=== PATIENT | female | born 1960 | race Caucasian/White ===

== ENCOUNTER → 2021-03-15 16:36 | Outpatient (BNVA) | payer OTHER, SELFPAY | PROVIDERS: Visit Provider Nurse Practitioner Family | DX: Z20.822 Contact with and (suspected) exposure to COVID-19 (principal); R05 Cough; R06.02 Shortness of breath | CPT/HCPCS: 87635 ==

== ENCOUNTER → 2021-03-22 08:58 | Outpatient (BNVA) | payer MEDICARE, SELFPAY | PROVIDERS: Visit Provider Family Medicine | DX: R06.02 Shortness of breath (principal); E55.9 Vitamin D deficiency, unspecified; Z78.0 Asymptomatic menopausal state; E78.5 Hyperlipidemia, unspecified; J44.9 Chronic obstructive pulmonary disease, unspecified; Z72.0 Tobacco use; E11.9 Type 2 diabetes mellitus without complications; R35.0 Frequency of micturition; J44.1 Chronic obstructive pulmonary disease with (acute) exacerbation | CPT/HCPCS: 71046; 80053; 80061; 81000; 82306; 82607; 83036; 84443; 85025; 87086 ==

== ENCOUNTER 2021-04-19 12:33 | Outpatient (CLI) | payer MEDICARE, SELFPAY ==
--- NOTE | 2021-04-19 12:46 | CT_ITS ---
WS: [id number] LDCT LUNG CANCER SCREENING HISTORY: Z72.0 - Tobacco use TECHNIQUE: Axial imaging performed from the apices to 1 cm below the costophrenic angles. Coronal and sagittal reformats are submitted with axial MIP series. All CT scans at [facility] use at least one of these dose optimization techniques: automated exposure control; mA and/or kV adjustment per patient size (includes targeted exams where dose is matched to clinical indication); or iterativ e reconstruction. DLP: 54.19 mGy.cm DIvol: 1.58 mGy COMPARISON: None available. Diagnostic quality: Satisfactory Lung Nodules: None. Lungs: Mild hyperinflation from emphysema. No pneumonia. Heart: Normal size with mild coronary artery calcification. No pericardial effusion. Other findings: Small hiatal hernia. Mild atherosclerosis aorta. Marked atrophy of the LEFT kidney. CT/CT lung screening [id number] IMPRESSION: LUNG-RADS: 1-Negative FOLLOW UP: 12 Month: Continue annual screening with LDCT OTHER FINDINGS (S MODIFIER): None. Severe atrophy LEFT kidney.
--- NOTE | 2021-04-19 14:01 | XR_ITS ---
WS: [id number] SCREENING DEXA SCAN [facility] CLINICAL INFORMATION: Z78.0 - Asymptomatic menopausal state COMPARISON: None. FINDINGS: The L1-L4 bone mineral density measures 0.885 g/cm2. This corresponds to a T score score of -2.5 and Z score of -0.7. Left femoral neck bone mineral density measures 0.653 g/cm2. This corresponds to a T score of -2.8 an d Z score of -1.5. Right femoral neck bone mineral density measures 0.640 g/cm2. This corresponds to a T score -2.9of an d Z score of -1.6. Mean femoral neck bone mineral density measures 0.647 g/cm2. This corresponds to a T score of -2.9 an d Z score of -1.6. XR/XR DEXA axial skeleton* [id number] IMPRESSION: Osteoporosis at the lower end of the range Patient's FRAX calculated 10 year probability for major osteoporotic fracture i s 21.6 % and osteoporotic hip fracture is 5.9%.
== END 2021-04-19 12:34 | disposition home or self-care (01) ==
PROVIDERS: PCP Nurse Practitioner Family; Visit Provider Nurse Practitioner Family
DX: Z12.2 Encounter for screening for malignant neoplasm of respiratory organs (principal); Z72.0 Tobacco use; Z78.0 Asymptomatic menopausal state; M81.0 Age-related osteoporosis without current pathological fracture
CPT/HCPCS: 71271; 77080; 80053; 80061; 81000; 82306; 82607; 83036; 84443; 85025; 87086

== ENCOUNTER → 2021-05-16 09:59 | Outpatient (BNVA) | payer MEDICARE, SELFPAY | PROVIDERS: PCP Nurse Practitioner Family; Visit Provider Nurse Practitioner Family | DX: R39.15 Urgency of urination (principal); N89.8 Other specified noninflammatory disorders of vagina; Z68.21 Body mass index [BMI] 21.0-21.9, adult | CPT/HCPCS: 81000 ==

== ENCOUNTER → 2021-05-29 09:26 | Outpatient (BNVA) | payer MEDICARE, SELFPAY | PROVIDERS: PCP Nurse Practitioner Family; Visit Provider Nurse Practitioner Adult Health | DX: Z01.818 Encounter for other preprocedural examination (principal); Z20.822 Contact with and (suspected) exposure to COVID-19 | CPT/HCPCS: 80048; 80061; 85025; 85610; 85730; 87635 ==

== ENCOUNTER → 2021-06-18 13:29 | Outpatient (BNVA) | payer MEDICARE, SELFPAY | PROVIDERS: PCP Nurse Practitioner Family; Visit Provider Nurse Practitioner Family | DX: Z79.01 Long term (current) use of anticoagulants (principal); Z86.73 Personal history of transient ischemic attack (TIA), and cerebral infarction without residual deficits | CPT/HCPCS: 85610 ==

== ENCOUNTER → 2021-07-04 10:46 | Outpatient (BNVA) | payer MEDICARE, SELFPAY | PROVIDERS: PCP Nurse Practitioner Family; Visit Provider Nurse Practitioner Family | DX: Z79.899 Other long term (current) drug therapy (principal) | CPT/HCPCS: 80048 ==

== ENCOUNTER → 2021-09-21 12:05 | Outpatient (BNVA) | payer MEDICARE, SELFPAY | PROVIDERS: PCP Nurse Practitioner Family; Visit Provider Nurse Practitioner Family | DX: Z79.01 Long term (current) use of anticoagulants (principal); N89.8 Other specified noninflammatory disorders of vagina; Z68.23 Body mass index [BMI] 23.0-23.9, adult; R60.9 Edema, unspecified | CPT/HCPCS: 85610 ==

== ENCOUNTER → 2021-10-08 08:40 | Outpatient (BNVA) | payer MEDICARE, SELFPAY | PROVIDERS: PCP Nurse Practitioner Family; Visit Provider Nurse Practitioner Family | DX: R30.0 Dysuria (principal); N89.8 Other specified noninflammatory disorders of vagina | CPT/HCPCS: 81000; 87070; 87205 ==

== ENCOUNTER 2021-12-03 09:44 | Day surgery (SDC) | payer MEDICARE, SELFPAY ==
[2021-11-29 09:18] VITALS: BMI 17.2
--- NOTE | 2021-12-03 08:00 | P.HP_ITS ---
Same Day Surgery H&P Indication for Procedure/HPI DATE OF PROCEDURE: December 03, 2021 CHIEF COMPLAINT/INDICATIONFOR SURGICAL PROCEDURE: History of colon polyp PREOP DIAGNOSIS: History of colon polyp PLANNED PROCEDURE: Operation Date: 12/03/21 11:15 Proposed Procedures p Colonoscopy 55761,K59.09,Z09,Z86.010(Not Applicable) - Chris Sanders MD Medications/Allergies* Home Medications Medication Instructions Recorded Confirmed Type estradiol 1 g VAGINAL .COMPLEX 03/15/21 11/29/21 History lisinopril 40 mg tablet 40 mg PO DAILY 03/15/21 11/29/21 History warfarin 2.5 mg tablet 2.5 mg PO .COMPLEX 09/21/21 11/29/21 History warfarin 5 mg tablet 5 mg PO .COMPLEX 09/21/21 11/29/21 History bumetanide 1 mg tablet 1 mg PO DAILY 11/26/21 11/29/21 History Allergies/Adverse Reactions Allergy/AdvReac Type Severity Reaction Status Date / Time No Known Allergies Allergy Verified 11/29/21 09:10 Pertinent History/Comorbid Conditions* Medical History (Updated 11/26/21 @ 14:25 by Chris Sanders MD) Depression History of stroke x3 History of tremor Hyperlipidemia Hypertension Family History (Updated 11/26/21 @ 14:03 by Ann Mccloud) Cancer Mother Uterine Social History Smoking and tobacco status: current every day smoker Alcohol intake: former Pertinent Exam Findings alert, oriented x 3, clear to auscultation bilaterally, regular rate & rhythm, operative site marked and procedure specific exam findings Recommendations Surgery/Procedure today Coding Level of Care Code Acute Utilities Equipment Repairer for Eleni Ye
[2021-12-03 10:04] VITALS: BP 156/81; PULSE 72; RESP 20; TEMP 36.4; O2SAT 97
[2021-12-03] MEDS: sodium chloride 0.9% 1,000 ML 30 ML IV (10:15)
--- NOTE | 2021-12-03 11:05 | ANES.PREANE2 ---
Pre-Anesthetic Assessment Height/Weight: Height 1.73 m Weight 51.256 kg Temp Pulse Resp BP Pulse Ox 97.6 F 72 20 H 156/81 97 12/03/21 10:04 12/03/21 10:04 12/03/21 10:04 12/03/21 10:04 12/03/21 10:04 Preop Diagnosis: H/O large polyp Operation Date: 12/03/21 11:15 Proposed Procedures p Colonoscopy 87736,K59.09,Z09,Z86.010(Not Applicable) - Chris Sanders MD Familial anesthetic complications: none Was Beta Stewart taken within 24 hours: Yes Was Clonidine taken within 24 hours: N/A Last intake: Intake Last Liquid Date 12/02/21 Last Liquid Time 19:30 Last Solid Date 12/01/21 Last Solid Time 18:00 Social Tobacco and No alcohol Exam alert, oriented x 3 and regular rate & rhythm Airway Submandibular: within normal limits Cervical ROM: within normal limits Mallampati: Class II Dentition: false Pulmonary Chronic Obstructive Pulmonary Disease Home O2 2-3L CV/HEM Hypertension GI Gastroesophageal Reflux Disease Neuropsych Cerebrovascular Accident and Transient Ischemic Attack Anesthetic Plan ASA status: 3 Anesthesia: MAC Medications/Allergies Home Medications Medication Instructions Recorded Confirmed Last Taken Type albuterol sulfate 90 mcg/actuation 2 puff INHALATION Q4H PRN #8.5 g 03/15/21 12/03/21 12/02/21 Rx aerosol inhaler estradiol 1 g VAGINAL .COMPLEX 03/15/21 12/03/21 1 Week Ago History ~11/26/21 lisinopril 40 mg tablet 40 mg PO DAILY 03/15/21 12/03/21 12/02/21 History diltiazem HCl 240 mg capsule,24 240 mg PO QAM #90 cap 04/25/21 12/03/21 12/03/21 07:00 Rx hr,extended release (Tiazac) pantoprazole 40 mg tablet,delayed 40 mg PO DAILY #90 tab 05/10/21 12/03/21 12/02/21 Rx release rosuvastatin 10 mg tablet 10 mg PO DAILY #90 tab 06/21/21 12/03/21 12/02/21 Rx sertraline 100 mg tablet 150 mg PO DAILY #90 tab 07/02/21 12/03/21 12/02/21 Rx trazodone 50 mg tablet 50 mg PO .bedtime #90 tab 07/02/21 12/03/21 12/02/21 Rx propranolol 10 mg tablet 10 mg PO BID #180 tab 09/19/21 12/03/21 12/03/21 07:00 Rx amlodipine 10 mg tablet 5 mg PO DAILY #90 tab 09/21/21 12/03/21 12/03/21 07:00 Rx warfarin 2.5 mg tablet 2.5 mg PO .COMPLEX 09/21/21 11/29/21 11/26/21 History warfarin 5 mg tablet 5 mg PO .COMPLEX 09/21/21 11/29/21 11/26/21 History albuterol sulfate 2.5 mg (3 mL) INHALATION Q4H PRN 10/31/21 12/03/21 2 Months Ago Rx #180 ml ~10/03/21 magnesium citrate 296 ml PO ONCE #296 ml 11/20/21 12/03/21 12/02/21 Rx fluticasone fur. 100 mcg-umeclid See Rx Instructions .ROUTE 11/23/21 12/03/21 12/02/21 Rx 62.5 mcg-vilant 25 mcg .COMPLEX #60 ea inhalat.powder (Trelegy Ellipta) bumetanide 1 mg tablet 1 mg PO DAILY 11/26/21 12/03/21 12/02/21 History peg 3350-electrolytes 236 240 ml PO Q10M #4000 ml 11/26/21 11/29/21 Unknown Rx gram-22.74 gram-6.74 gram-5.86 gram solution (Golytely) Allergies Allergy/AdvReac Type Severity Reaction Status Date / Time No Known Allergies Allergy Verified 11/29/21 09:10 Current Medications Generic Name Dose Route Start Last Admin Trade Name Freq PRN Reason Stop Dose Admin Sodium Chloride 1,000 mls @ 30 mls/hr 12/03/21 10:00 12/03/21 10:15 Sodium Chloride 0.9% IV 12/04/21 09:59 30 mls/hr .Q24H ZORAIDA Administration PFSH Anesthesia Medical History (Updated 11/26/21 @ 14:25 by Chris Sanders MD) Depression History of stroke x3 History of tremor Hyperlipidemia Hypertension Family History (Updated 11/26/21 @ 14:03 by Ann Mccloud) Mother Cancer Uterine Social History (Updated 11/26/21 @ 14:04 by Ann Mccloud) Smoking and tobacco status: current every day smoker Alcohol intake: former Data Anesthesia Cardiac Studies: No Data to Display
[2021-12-03 11:48] VITALS: BP 99/55; PULSE 57; RESP 16; TEMP 36.1; O2SAT 95
[2021-12-03 11:58] VITALS: BP 100/56; PULSE 59; RESP 18; O2SAT 99
--- NOTE | 2021-12-03 13:54 | ANE.PACU2 ---
Inpatient post-anesthesia follow up: Airway intact: Yes Vital signs: Temperature 97.0 F Pulse Rate 59 Respiratory Rate 18 Blood Pressure 100/56 Pulse Oximetry 99 Oxygen Delivery Me thod Nasal Cannula Oxygen Flow Rate 3 Fraction of Inspir ed Oxygen Hydration adequate: Yes Nausea and vomiting: No Pain level: 1 Mental status: Baseline
== END 2021-12-03 12:10 | disposition home or self-care (01) ==
PROVIDERS: PCP Nurse Practitioner Family; Visit Provider Internal Medicine
PROC: 0DJD8ZZ Inspection of Lower Intestinal Tract, Via Natural or Artificial Opening Endoscopic (ICD-10-PCS; CPT 45378; principal; 2021-12-03 11:15)
DX: K59.09 Other constipation (principal); Z86.010 Personal history of colon polyps; K57.30 Diverticulosis of large intestine without perforation or abscess without bleeding; J44.9 Chronic obstructive pulmonary disease, unspecified; Z99.81 Dependence on supplemental oxygen; I10 Essential (primary) hypertension; K21.9 Gastro-esophageal reflux disease without esophagitis; Z86.73 Personal history of transient ischemic attack (TIA), and cerebral infarction without residual deficits; F32.9 Major depressive disorder, single episode, unspecified; E78.5 Hyperlipidemia, unspecified; F17.210 Nicotine dependence, cigarettes, uncomplicated
CPT/HCPCS: 45378; J2704; J7030

== ENCOUNTER → 2022-01-01 09:01 | Outpatient (BNVA) | payer MEDICARE, SELFPAY | PROVIDERS: PCP Nurse Practitioner Family; Visit Provider Nurse Practitioner Family | DX: E78.5 Hyperlipidemia, unspecified (principal); E55.9 Vitamin D deficiency, unspecified; Z79.01 Long term (current) use of anticoagulants | CPT/HCPCS: 80053; 80061; 82306; 85025; 85610 ==

== ENCOUNTER → 2022-01-08 08:44 | Outpatient (BNVA) | payer MEDICARE, SELFPAY | PROVIDERS: PCP Nurse Practitioner Family; Visit Provider Nurse Practitioner Family | DX: Z79.01 Long term (current) use of anticoagulants (principal) | CPT/HCPCS: 85610 ==

== ENCOUNTER → 2022-02-08 08:14 | Outpatient (BNVA) | payer MEDICARE, SELFPAY | PROVIDERS: PCP Nurse Practitioner Family; Visit Provider Nurse Practitioner Family | DX: Z79.01 Long term (current) use of anticoagulants (principal) | CPT/HCPCS: 85610 ==

== ENCOUNTER → 2022-03-11 14:34 | Outpatient (BNVA) | payer MEDICARE, SELFPAY | PROVIDERS: PCP Nurse Practitioner Family; Visit Provider Nurse Practitioner Family | DX: Z79.01 Long term (current) use of anticoagulants (principal) | CPT/HCPCS: 85610 ==

== ENCOUNTER 2022-04-30 18:25 | Emergency (ER) | payer MEDICARE, SELFPAY ==
[2022-04-30 18:34] VITALS: BP 168/76; PULSE 78; RESP 18; TEMP 36.6; O2SAT 93
--- NOTE | 2022-04-30 21:04 | XRR_ITS ---
PROCEDURE INFORMATION: Exam: XR Cervical Spine Exam date and time: 04/30/2022 9:32 PM Age: 61 years old Clinical indication: Neck pain; Additional info: Fall 2 weeks ago with persistent pain TECHNIQUE: Imaging protocol: Radiologic exam of the cervical spine. Views: 2 or 3 views. COMPARISON: CT head wo con* [id number] 04/30/2022 9:24 PM FINDINGS: Bones/joints: No acute fracture. Normal alignment. Soft tissues: Unremarkable. XR/XR cervical spine 3V* [id number] IMPRESSION: No acute findings.
--- NOTE | 2022-04-30 21:04 | XRR_ITS ---
PROCEDURE INFORMATION: Exam: XR Sacrum and Coccyx, 2 or More Views Exam date and time: 04/30/2022 9:32 PM Age: 61 years old Clinical indication: Pain in coccyx area; Additional info: Fall 2 weeks ago with persistent pain TECHNIQUE: Imaging protocol: XR of the sacrum and coccyx, 2 or more views. COMPARISON: No relevant prior studies available. FINDINGS: Bones/joints: No acute fracture. Soft tissues: Unremarkable. Vasculature: Vascular stent projects over the right hemipelvis. XR/XR sacrum coccyx min 2V [id number] IMPRESSION: No acute findings.
--- NOTE | 2022-04-30 21:06 | CTR_ITS ---
PROCEDURE INFORMATION: Exam: CT Head Without Contrast Exam date and time: 04/30/2022 9:24 PM Age: 61 years old Clinical indication: Pain; Headache; Patient HX: TAYLOR with photophobia. Had a fall two weeks ago. History of CVA. ; Additional info: Fall with persisting TAYLOR and photophobia TECHNIQUE: Imaging protocol: Computed tomography of the head without contrast. Radiation optimization: All CT scans at this facility use at least one of these dose optimization techniques: automated exposure control; mA and/or kV adjustment per patient size (includes targeted exams where dose is matched to clinical indication); or iterative reconstruction. COMPARISON: No relevant prior studies available. RADIATION DOSE METRICS: Total DLP (mGy-cm): 982.18 FINDINGS: Brain: No hemorrhage. No edema. Moderate diffuse cerebral atrophy and mild sequela of chronic small vessel ischemic disease. No mass effect. Cerebral ventricles: No ventriculomegaly. Paranasal sinuses: Visualized sinuses are unremarkable. No fluid levels. Mastoid air cells: Visualized mastoid air cells are well aerated. Bones/joints: Unremarkable. No acute fracture. Soft tissues: Unremarkable. CT/CT head wo con* [id number] IMPRESSION: No acute intracranial abnormality.
--- NOTE | 2022-04-30 21:33 | W.ED.HA ---
Documented by User: Vidhi Dinh, HAY STACKER-C 04/30/22 22:38 HPI - Headache General: Chief Complaint: Headache Stated Complaint: Neck and Back Pain Time Seen by Provider: 04/30/22 20:44 History of Present Illness: Patient is in today for complaints of severe persistent headache, neck pain, sacrum pain. Patient reports that at the beginning of March she had a series of 3 falls in a row. She reports that she was falling at home she hit her head 2-3 different times. Reports that 1 time when she hit her head she was immediately dizzy and just felt stunned . She reports that a couple of weeks ago she started having severe head pain that is persisting. She reports that she wakes up and goes to bed with a headache that just will not go away. She reports most of the headache is frontal and on the top of her head. She does report changes in her hearing. She reports neck pain. She reports coccyx/sacrum pain. She reports that the coccyx and sacrum pain is the worst. She reports that she is unable to get comfortable to sleep. Sitting is worse. She reports that she did see her primary care provider a couple of days ago and was referred to have a CT scan at [facility] in [place]. She reports that they did do a CT scan of her head and they told her it was negative. He reports that her symptoms are only worsening. She does offer that she has had 3 different TIAs with complete resolution of symptoms, she is on chronic anticoagulant therapy with Coumadin, and she has a family history of 2 family members having brain tumor and aneurysm. She was given a muscle relaxer however she is only taken a half a tablet very infrequently because she does not like the way she feels after taking them. She denies any fever, chills, nausea, vomiting. She denies any saddle anesthesia, loss of bowel or bladder control. Associated symptoms: Deny chest pain or fever(s) Review of Systems Const: Denies: fever(s) or chills Eyes: Reports: photophobia; Denies: change in vision ENMT: Reports: change in hearing (Reports her ears feel full and difficult to hear) Card: Denies: chest pain or palpitations Resp: Reports: dyspnea and other (Patient reports chronic shortness of breath with COPD) Musc: Reports: neck pain, back pain and muscle cramps PFSH ED PFSH: Medical History Depression History of stroke x3 History of tremor Hyperlipidemia Hypertension Family History Mother Cancer Uterine Social History Smoking and tobacco status: current every day smoker Alcohol intake: former Physical Exam Const: COMMON NORMALS: no acute distress, patient oriented x3 and alert OTHER: Patient is on portable oxygen. She is in obvious pain and trying to move to get comfortable however she is not in acute distress. Neck/C-Spine: OTHER: There is no tenderness to palpation to the cervical spine, no step-offs or obvious bony deformities appreciated. There is a palpable muscle knot right side cervical paraspinal musculature. Patient has free range of motion of the neck. No meningeal signs Resp: OTHER: Patient is on O2 nasal cannula. She has diminished lung sounds bilateral bases. She does have increased work of breathing whenever she talks a lot, however she does not appear to be in acute respiratory distress Cardio: COMMON NORMALS: regular rate, regular rhythm, S1 normal heart sound present and S2 normal heart sound present RATE: regular rate RHYTHM: regular rhythm HEART SOUNDS: S1 normal heart sound present and S2 normal heart sound present Back/Pelvis: SACRUM: no ecchymosis, no erythema, no swelling and tenderness on the right and positive midline OTHER: Patient has point tenderness just at the gluteal cleft midline. There is no obvious bony step-off or deformity. Just to the right of the gluteal cleft to the paraspinal musculature there is a muscle knot with point tenderness there as well. No obvious soft tissue deformity is appreciated Neuro: COMMON NORMALS: patient oriented x3, CN's II-XII intact bilaterally, moves all extremities, no focal motor deficits and no sensory deficits noted SENSORIUM/ORIENTATION: Yes alert Course Vital Signs: Vital signs: Vital Signs Temperature 97.8 F 04/30/22 18:34 Pulse Rate 78 04/30/22 18:34 Respiratory Rate 15 04/30/22 22:36 Blood Pressure 168/76 04/30/22 18:34 Pulse Oximetry 93 04/30/22 18:34 MDM - Headache Medical Decision Making Patient is in for ongoing pain to her head, neck, sacrum. Patient had numerous falls in a short period of time early March. She is on chronic anticoagulant therapy Coumadin for previous DVTs. She is O2 dependent from COPD. Patient is in obvious discomfort. Given her report of photophobia and her persisting headache x2 weeks on Coumadin therapy I did go ahead and do a CT scan of her head without contrast. No acute intracranial abnormality appreciated per radiologist. Cervical spine x-ray as well as sacrum and coccyx x-rays show no acute findings per radiologist. 1 dose of morphine IM with Zofran administered just to help bring patient's pain level down. Discussed with her conservative treatments and the benefit of the muscle relaxant that she has been already prescribed. Discussed warm moist compresses and gentle stretches. Continue follow-up with primary care provider. Return to the ER for any new or worsening symptoms. Lab Data Radiology Impressions Cervical Spine X-Ray 04/30/22 21:04 IMPRESSION: No acute findings. Sacrum and Coccyx X-Ray 04/30/22 21:04 IMPRESSION: No acute findings. Head CT 04/30/22 21:06 IMPRESSION: No acute intracranial abnormality. Discharge Plan Discharge Patient Disposition: Home Clinical Impression: Postconcussion syndrome, Contusion of sacrum, Muscle spasm, On warfarin therapy, COPD (chronic obstructive pulmonary disease) Condition: Stable Prescriptions: No Action warfarin 2.5 mg tablet 2.5 mg PO .COMPLEX Rx Instructions: 2.5 mg PO friday,fri and friday; warfarin 5 mg tablet 5 mg PO .COMPLEX Rx Instructions: 5 mg PO , ,fri and sun; estradiol 0.01 % (0.1 mg/gram) cream 1 g vaginal .COMPLEX PRN Rx Instructions: 1 g vaginally three times a week; for 14 days PRN; rosuvastatin 10 mg tablet 20 mg PO DAILY Trelegy Ellipta 100-62.5-25 mcg blister with device See Rx Instructions .ROUTE .COMPLEX Qty: 60 3RF Dose Instruction: INHALE 1 PUFF BY MOUTH ONCE DAILY Rx Instructions: INHALE 1 PUFF BY MOUTH ONCE DAILY metoprolol tartrate 50 mg tablet 50 mg PO BID Qty: 180 0RF albuterol sulfate 2.5 mg /3 mL (0.083 %) solution for nebulization 2.5 mg inhalation Q4H PRN (Reason: shortness of breath or wheezing) Qty: 180 3RF albuterol sulfate 90 mcg/actuation HFA aerosol inhaler 2 puff inhalation Q4H PRN (Reason: shortness of breath or wheezing) Qty: 8.5 2RF amlodipine 10 mg tablet 5 mg PO DAILY Qty: 90 3RF azithromycin 250 mg tablet 250 mg PO .mon, wed, fri Qty: 90 0RF Rx Instructions: start on day 2 of therapy bumetanide 1 mg tablet 1 mg PO DAILY Qty: 90 0RF lisinopril 40 mg tablet 40 mg PO DAILY Qty: 90 1RF ondansetron 8 mg tablet,disintegrating 8 mg PO Q8H PRN (Reason: nausea and vomiting) Qty: 30 0RF pantoprazole 40 mg tablet,delayed release (DR/EC) 40 mg PO DAILY Qty: 90 3RF peg 3350-electrolytes [Golytely] 236-22.74-6.74 -5.86 gram recon soln 240 ml PO Q10M Qty: 4000 0RF Rx Instructions: until fecal effluent is clear sertraline 100 mg tablet See Rx Instructions .ROUTE .COMPLEX Qty: 135 0RF Dose Instruction: TAKE 1 AND 1/2 TABLETS EVERY DAY Rx Instructions: TAKE 1 AND 1/2 TABLETS EVERY DAY trazodone 50 mg tablet See Rx Instructions .ROUTE .COMPLEX Qty: 90 0RF Dose Instruction: TAKE 1 TABLET EVERY NIGHT AT BEDTIME Rx Instructions: TAKE 1 TABLET EVERY NIGHT AT BEDTIME magnesium citrate Solution 296 ml PO ONCE Qty: 296 0RF Prolia 60 mg/mL syringe 60 mg SUBCUT .every 6 month Qty: 1 2RF Discharge Orders: Discharge ED (Routine); Ordered 04/30/22 Ordered By: Vidhi Dinh Referrals: Fiorella Walters NP [Primary Care Provider] - Discharge Diet: Usual diet Discharge Activity: Increase activity as tolerated Patient Instructions: Post Concussion Syndrome (ED) Activity Restrictions/Additional Instructions: imaging today was negative for any acute abnormalities. I recommend conservative treatment at home to include warm moist heat, gentle stretches. Take muscle relaxer as previously prescribed. Continue follow-up with your primary care provider. Return to the ER for any new or worsening symptoms Coding Level of Care Code ED Agriculture Mechanic for Yousifg Fwd Exam Expanded Problem Focused Documented by User: Yoan Del Rosario DO 05/01/22 14:09 HPI - Headache General: Chief Complaint: Headache Stated Complaint: Neck and Back Pain Time Seen by Provider: 04/30/22 20:44 PFSH ED PFSH: Medical History Depression History of stroke x3 History of tremor Hyperlipidemia Hypertension Family History Mother Cancer Uterine Social History Smoking and tobacco status: current every day smoker Alcohol intake: former Course Vital Signs: Vital signs: Vital Signs Temperature 97.8 F 04/30/22 18:34 Pulse Rate 78 04/30/22 18:34 Respiratory Rate 15 04/30/22 22:36 Blood Pressure 168/76 04/30/22 18:34 Pulse Oximetry 93 04/30/22 18:34 MDM - Headache Medical Decision Making Patient is in for ongoing pain to her head, neck, sacrum. Patient had numerous falls in a short period of time early March. She is on chronic anticoagulant therapy Coumadin for previous DVTs. She is O2 dependent from COPD. Patient is in obvious discomfort. Given her report of photophobia and her persisting headache x2 weeks on Coumadin therapy I did go ahead and do a CT scan of her head without contrast. No acute intracranial abnormality appreciated per radiologist. Cervical spine x-ray as well as sacrum and coccyx x-rays show no acute findings per radiologist. 1 dose of morphine IM with Zofran administered just to help bring patient's pain level down. Discussed with her conservative treatments and the benefit of the muscle relaxant that she has been already prescribed. Discussed warm moist compresses and gentle stretches. Continue follow-up with primary care provider. Return to the ER for any new or worsening symptoms. Chart reviewed and patient discussed with midlevel. Agree with assessment and plan. Lab Data Radiology Impressions Cervical Spine X-Ray 04/30/22 21:04 IMPRESSION: No acute findings. Sacrum and Coccyx X-Ray 04/30/22 21:04 IMPRESSION: No acute findings. Head CT 04/30/22 21:06 IMPRESSION: No acute intracranial abnormality. Discharge Plan Discharge Patient Disposition: Home Clinical Impression: Postconcussion syndrome, Contusion of sacrum, Muscle spasm, On warfarin therapy, COPD (chronic obstructive pulmonary disease) Condition: Stable Prescriptions: No Action warfarin 2.5 mg tablet 2.5 mg PO .COMPLEX Rx Instructions: 2.5 mg PO friday,fri and friday; warfarin 5 mg tablet 5 mg PO .COMPLEX Rx Instructions: 5 mg PO , ,fri and fri; estradiol 0.01 % (0.1 mg/gram) cream 1 g vaginal .COMPLEX PRN Rx Instructions: 1 g vaginally three times a week; for 14 days PRN; rosuvastatin 10 mg tablet 20 mg PO DAILY Trelegy Ellipta 100-62.5-25 mcg blister with device See Rx Instructions .ROUTE .COMPLEX Qty: 60 3RF Dose Instruction: INHALE 1 PUFF BY MOUTH ONCE DAILY Rx Instructions: INHALE 1 PUFF BY MOUTH ONCE DAILY metoprolol tartrate 50 mg tablet 50 mg PO BID Qty: 180 0RF albuterol sulfate 2.5 mg /3 mL (0.083 %) solution for nebulization 2.5 mg inhalation Q4H PRN (Reason: shortness of breath or wheezing) Qty: 180 3RF albuterol sulfate 90 mcg/actuation HFA aerosol inhaler 2 puff inhalation Q4H PRN (Reason: shortness of breath or wheezing) Qty: 8.5 2RF amlodipine 10 mg tablet 5 mg PO DAILY Qty: 90 3RF azithromycin 250 mg tablet 250 mg PO .fri, fri, fri Qty: 90 0RF Rx Instructions: start on day 2 of therapy bumetanide 1 mg tablet 1 mg PO DAILY Qty: 90 0RF lisinopril 40 mg tablet 40 mg PO DAILY Qty: 90 1RF ondansetron 8 mg tablet,disintegrating 8 mg PO Q8H PRN (Reason: nausea and vomiting) Qty: 30 0RF pantoprazole 40 mg tablet,delayed release (DR/EC) 40 mg PO DAILY Qty: 90 3RF peg 3350-electrolytes [Golytely] 236-22.74-6.74 -5.86 gram recon soln 240 ml PO Q10M Qty: 4000 0RF Rx Instructions: until fecal effluent is clear sertraline 100 mg tablet See Rx Instructions .ROUTE .COMPLEX Qty: 135 0RF Dose Instruction: TAKE 1 AND 1/2 TABLETS EVERY DAY Rx Instructions: TAKE 1 AND 1/2 TABLETS EVERY DAY trazodone 50 mg tablet See Rx Instructions .ROUTE .COMPLEX Qty: 90 0RF Dose Instruction: TAKE 1 TABLET EVERY NIGHT AT BEDTIME Rx Instructions: TAKE 1 TABLET EVERY NIGHT AT BEDTIME magnesium citrate Solution 296 ml PO ONCE Qty: 296 0RF Prolia 60 mg/mL syringe 60 mg SUBCUT .every 6 month Qty: 1 2RF Discharge Orders: Discharge ED (Routine); Ordered 04/30/22 Ordered By: Vidhi Dinh Referrals: Fiorella Walters, FREDERIC [Primary Care Provider] - Discharge Diet: Usual diet Discharge Activity: Increase activity as tolerated Patient Instructions: Post Concussion Syndrome (ED) Activity Restrictions/Additional Instructions: imaging today was negative for any acute abnormalities. I recommend conservative treatment at home to include warm moist heat, gentle stretches. Take muscle relaxer as previously prescribed. Continue follow-up with your primary care provider. Return to the ER for any new or worsening symptoms Coding Level of Care Code ED Agriculture Mechanic for Eleni Fwd Exam Expanded Problem Focused
[2022-04-30 22:36] VITALS: RESP 15
[2022-04-30] MEDS: morphine 4 mg/mL SDV 1 mL IM (22:36)
[2022-04-30] MEDS: ondansetron 2 mg/ML SDV 2 mL 4 MG IM (22:36)
== END 2022-04-30 22:51 | disposition home or self-care (01) ==
PROVIDERS: Emergency Provider Nurse Practitioner Family; PCP Nurse Practitioner Family
DX: F07.81 Postconcussional syndrome (principal); S30.0XXA Contusion of lower back and pelvis, initial encounter; W19.XXXA Unspecified fall, initial encounter; M62.838 Other muscle spasm; Z79.01 Long term (current) use of anticoagulants; J44.9 Chronic obstructive pulmonary disease, unspecified; I10 Essential (primary) hypertension; F17.200 Nicotine dependence, unspecified, uncomplicated; Z91.81 History of falling; Z99.81 Dependence on supplemental oxygen; Z86.73 Personal history of transient ischemic attack (TIA), and cerebral infarction without residual deficits
CPT/HCPCS: 70450; 72040; 72220; 96372; 99285; J2270; J2405

== ENCOUNTER → 2022-05-29 11:22 | Outpatient (BNVA) | payer MEDICARE, SELFPAY | PROVIDERS: PCP Nurse Practitioner Family; Visit Provider Nurse Practitioner Family | DX: Z86.39 Personal history of other endocrine, nutritional and metabolic disease (principal) | CPT/HCPCS: 83036 ==

== ENCOUNTER → 2022-07-26 13:31 | Outpatient (BNVA) | payer MEDICARE, SELFPAY | PROVIDERS: PCP Nurse Practitioner Family; Referring Provider Nurse Practitioner Family; Visit Provider Student in an Organized Health Care Education/Training Program | DX: M12.811 Other specific arthropathies, not elsewhere classified, right shoulder (principal); M12.812 Other specific arthropathies, not elsewhere classified, left shoulder | CPT/HCPCS: 20610; 99204; J3301 ==

== ENCOUNTER → 2022-09-05 09:03 | Outpatient (BNVA) | payer MEDICARE, SELFPAY | PROVIDERS: PCP Nurse Practitioner Family; Visit Provider Nurse Practitioner Family | DX: I10 Essential (primary) hypertension (principal); E55.9 Vitamin D deficiency, unspecified; R30.0 Dysuria | CPT/HCPCS: 80053; 80061; 81000; 82306; 84443 ==

== ENCOUNTER → 2022-12-03 13:32 | Outpatient (BNVA) | payer MEDICARE, SELFPAY | PROVIDERS: PCP Nurse Practitioner Family; Visit Provider Nurse Practitioner Family | DX: E53.8 Deficiency of other specified B group vitamins (principal); R19.7 Diarrhea, unspecified | CPT/HCPCS: 82607; 85025; 87493; 87506 ==

== ENCOUNTER → 2022-12-05 09:46 | Outpatient (BNVA) | payer MEDICARE, SELFPAY | PROVIDERS: PCP Nurse Practitioner Family; Visit Provider Nurse Practitioner Family | DX: R19.7 Diarrhea, unspecified (principal) | CPT/HCPCS: 87493; 87506 ==

== ENCOUNTER → 2023-02-12 09:57 | Outpatient (BNVA) | payer MEDICARE, SELFPAY | PROVIDERS: PCP Nurse Practitioner Family; Visit Provider Nurse Practitioner Family | DX: R30.9 Painful micturition, unspecified (principal) | CPT/HCPCS: 81000 ==

== ENCOUNTER → 2023-02-26 11:19 | Outpatient (BNVA) | payer MEDICARE, SELFPAY | PROVIDERS: PCP Nurse Practitioner Family; Visit Provider Nurse Practitioner Family | DX: R30.0 Dysuria (principal) | CPT/HCPCS: 81000 ==

== ENCOUNTER → 2023-03-11 08:48 | Outpatient (BNVA) | payer MEDICARE, SELFPAY | PROVIDERS: PCP Nurse Practitioner Family; Visit Provider Nurse Practitioner Family | DX: R30.9 Painful micturition, unspecified (principal); R41.82 Altered mental status, unspecified; R10.9 Unspecified abdominal pain; G89.29 Other chronic pain | CPT/HCPCS: 81000 ==

== ENCOUNTER → 2023-05-08 09:22 | Outpatient (BNVA) | payer MEDICARE, SELFPAY | PROVIDERS: PCP Nurse Practitioner Family; Visit Provider Nurse Practitioner Family | DX: R10.13 Epigastric pain (principal) | CPT/HCPCS: 83520 ==

== ENCOUNTER → 2023-08-05 09:00 | Outpatient (BNVA) | payer MEDICARE, SELFPAY | PROVIDERS: PCP Nurse Practitioner Family; Visit Provider Nurse Practitioner Family | DX: E55.9 Vitamin D deficiency, unspecified (principal); I10 Essential (primary) hypertension | CPT/HCPCS: 80053; 80061; 82306; 84443 ==

== ENCOUNTER → 2023-08-28 09:38 | Outpatient (BNVA) | payer MEDICARE, SELFPAY | PROVIDERS: PCP Nurse Practitioner Family; Visit Provider Nurse Practitioner Family | DX: M25.521 Pain in right elbow (principal) | CPT/HCPCS: 73080 ==

== ENCOUNTER → 2023-09-12 10:28 | Outpatient (BNVA) | payer MEDICARE, SELFPAY | PROVIDERS: PCP Nurse Practitioner Family; Referring Provider Nurse Practitioner Family; Visit Provider Physician Assistant | DX: M12.811 Other specific arthropathies, not elsewhere classified, right shoulder (principal); M12.812 Other specific arthropathies, not elsewhere classified, left shoulder | CPT/HCPCS: 20610; 73030; 99213; J3301 ==

== ENCOUNTER → 2023-11-04 16:20 | Outpatient (BNVA) | payer MEDICARE, SELFPAY | PROVIDERS: PCP Nurse Practitioner Family; Visit Provider Nurse Practitioner Family | DX: R30.0 Dysuria (principal); R30.9 Painful micturition, unspecified; N94.9 Unspecified condition associated with female genital organs and menstrual cycle | CPT/HCPCS: 81000; 87086 ==

== ENCOUNTER 2023-11-05 13:47 | Outpatient (CLI) | payer MEDICARE, SELFPAY ==
--- NOTE | 2023-11-05 14:00 | MM_ITS ---
WS: [id number] BILATERAL 3D TOMOSYNTHESIS DIGITAL SCREENING MAMMOGRAPHY WITH CAD CLINICAL INFORMATION: SCREENING HISTORY: Screening mammogram. No current complaints. COMPARISON: 2020 TECHNIQUE: Bilateral CC and MLO views. FINDINGS: The breasts are composed of heterogeneous fibroglandular density tissue, which can limit the detectio n of small underlying mass lesions. Breast parenchymal volume loss compared to previous. No suspiciou s mass, asymmetry, calcifications, or architectural distortion. No evidence of malignancy. Punctate a nd lucent centered calcifications. Vascular calcifications. Stable cluster calcifications LEFT breast . MM/[place] [id number] IMPRESSION: BI-RADS: 2-Benign FOLLOW UP: 1 Year Follow-up Recommend return to annual screening mammography.
== END 2023-11-05 13:48 | disposition home or self-care (01) ==
LOC: MOBLMAM 13:58
PROVIDERS: PCP Nurse Practitioner Family; Visit Provider Nurse Practitioner Family
DX: Z12.31 Encounter for screening mammogram for malignant neoplasm of breast (principal); R92.323 Mammographic fibroglandular density, bilateral breasts; R92.1 Mammographic calcification found on diagnostic imaging of breast
CPT/HCPCS: 77063; 77067

== ENCOUNTER → 2023-11-13 09:06 | Outpatient (BNVA) | payer MEDICARE, SELFPAY | PROVIDERS: PCP Nurse Practitioner Family; Visit Provider Nurse Practitioner Family | DX: M41.86 Other forms of scoliosis, lumbar region (principal); Z98.890 Other specified postprocedural states | CPT/HCPCS: 74018 ==

== ENCOUNTER 2023-12-12 12:44 | Outpatient (CLI) | payer MEDICARE, SELFPAY ==
--- NOTE | 2023-12-12 13:30 | XR_ITS ---
WS: [id number] SCREENING DEXA SCAN [employer] CLINICAL INFORMATION: Z78.0 - Asymptomatic menopausal state COMPARISON: 2020 FINDINGS: The L1-L4 bone mineral density measures 0.887 g/cm2. This corresponds to a T score score of -2.4 and Z score of 0.0. Left femoral neck bone mineral density measures 0.585 g/cm2. This corresponds to a T score of -3.4 an d Z score of -1.6. Right femoral neck bone mineral density measures 0.553 g/cm2. This corresponds to a T score -3.6of an d Z score of -1.8. Mean femoral neck bone mineral density measures 0.569 g/cm2. This corresponds to a T score of -3.5 an d Z score of -1.7. XR/XR DEXA axial skeleton* [id number] IMPRESSION: Osteopenia lumbar spine approaching osteoporosis Osteoporosis femoral necks. Patient's FRAX calculated 10 year probability for major osteoporotic fracture i s 27.6% and osteoporotic hip fracture is 15.0%. Bone mineral density lumbar spine increased 0.2% Bone mineral density femoral necks decreased -12.1%
== END 2023-12-12 12:45 | disposition home or self-care (01) ==
LOC: RAD 12:45
PROVIDERS: PCP Nurse Practitioner Family; Visit Provider Nurse Practitioner Family
DX: Z78.0 Asymptomatic menopausal state (principal); M12.811 Other specific arthropathies, not elsewhere classified, right shoulder; M12.812 Other specific arthropathies, not elsewhere classified, left shoulder; M85.88 Other specified disorders of bone density and structure, other site
CPT/HCPCS: 20610; 77080; 99213; J3301

== ENCOUNTER → 2023-12-15 13:48 | Outpatient (BNVA) | payer MEDICARE, SELFPAY | PROVIDERS: PCP Nurse Practitioner; Visit Provider Surgery | DX: K59.04 Chronic idiopathic constipation (principal); K21.9 Gastro-esophageal reflux disease without esophagitis | CPT/HCPCS: 99204 ==

== ENCOUNTER → 2023-12-26 10:26 | Outpatient (BNVA) | payer MEDICARE, SELFPAY | PROVIDERS: PCP Nurse Practitioner Family; Visit Provider Nurse Practitioner Family | DX: M81.0 Age-related osteoporosis without current pathological fracture (principal) | CPT/HCPCS: 80053 ==

== ENCOUNTER → 2024-01-05 12:18 | Outpatient (BNVA) | payer MEDICARE, SELFPAY | PROVIDERS: PCP Nurse Practitioner Family; Visit Provider Surgery | DX: R11.0 Nausea (principal); K21.9 Gastro-esophageal reflux disease without esophagitis; K59.04 Chronic idiopathic constipation; K57.92 Diverticulitis of intestine, part unspecified, without perforation or abscess without bleeding | CPT/HCPCS: 99214 ==

== ENCOUNTER 2024-02-25 10:24 | Day surgery (SDC) | payer MEDICARE, SELFPAY ==
[2024-02-25 10:52] VITALS: BP 117/79; PULSE 112; RESP 18; TEMP 37.2; O2SAT 99; BMI 13.4
[2024-02-25] MEDS: sodium chloride 0.9% 1,000 ML 30 ML IV (11:12)
--- NOTE | 2024-02-25 11:17 | ANES.PREANE2 ---
Pre-Anesthetic Assessment Height/Weight: Height 1.52 m Weight 31.298 kg Temp Pulse Resp BP Pulse Ox O2 Del Method O2 Flow Rate 99.0 F 112 H 18 117/79 99 Nasal Cannula 2 02/25/24 10:52 02/25/24 10:52 02/25/24 10:52 02/25/24 10:52 02/25/24 10:52 02/25/24 10:52 02/25/24 10:52 Preop Diagnosis: GERD constipation Operation Date: 02/25/24 11:30 Proposed Procedures p EGD Dilation W/ Balloon 37940, 34691,G0105, R11.0, K21.9, K59.04(Not Applicable) - DO vonda Akbar Colonoscopy(Not Applicable) - Octavio Haque DO Familial anesthetic complications: none Was Beta Stewart taken within 24 hours: N/A Was Clonidine taken within 24 hours: N/A Last intake: Intake Last Liquid Date 02/24/24 Last Liquid Time 20:00 Last Solid Date 02/23/24 Last Solid Time 19:30 Social Tobacco and No alcohol 0.5 pack(s) per day 50 pack years Exam alert, oriented x 3, clear to auscultation bilaterally and regular rate & rhythm Airway Submandibular: within normal limits Cervical ROM: within normal limits Mallampati: Class I Dentition: false Pulmonary Chronic Obstructive Pulmonary Disease and Exertional Dyspnea O2 2 L CV/HEM Atrial Fibrillation, Hypertension and Peripheral Vascular Disease stent in left leg left kidney not functional Hepatic None reported GI Gastroesophageal Reflux Disease Metabolic Hyperlipidemia Musc/skel Osteoarthritis/DJD and Weakness Neuropsych Anxiety and Headache Brain surgery x 2 shunt placed then removed Anesthetic Plan ASA status: 3 Anesthesia: MAC Risk of > 500 ml blood loss (7ml/kg in children): No Medications/Allergies Home Medications Medication Instructions Recorded Confirmed Last Taken Type albuterol sulfate 2.5 mg/3 mL 2.5 mg (3 mL) inhalation Q4H PRN 04/26/22 02/25/24 02/18/24 Rx (0.083 %) solution for nebulization shortness of breath or wheezing #180 mL cholecalciferol (vitamin D3) 25 25 mcg PO DAILY #90 caps 08/06/23 02/25/24 02/24/24 Rx mcg (1,000 unit) capsule polyethylene glycol 3350 17 17 g PO DAILY #850 grams 11/14/23 02/25/24 Unknown Rx gram/dose oral powder (Miralax) denosumab 60 mg/mL subcutaneous 60 mg SUBCUT .q6 months #1 mL 12/12/23 02/25/24 1 Month Ago Rx syringe (Prolia) ~01/19/24 diltiazem HCl 120 mg 120 mg PO BID 12/12/23 02/25/24 02/24/24 History capsule,extended release 12 hr pantoprazole 40 mg tablet,delayed 40 mg PO BID 6 weeks #84 tabs 12/15/23 02/25/24 02/24/24 Rx release (Protonix) linaclotide 72 mcg capsule 72 mcg PO DAILY 30 days #30 caps 01/05/24 02/25/24 02/24/24 Rx (Linzess) dicyclomine 20 mg tablet 20 mg PO DAILY 02/19/24 02/25/24 02/24/24 History lisinopril 40 mg tablet 40 mg PO DAILY 02/19/24 02/25/24 02/24/24 History rosuvastatin 10 mg tablet 10 mg PO DAILY 02/19/24 02/25/24 02/24/24 History sertraline 100 mg tablet 150 mg PO DAILY 02/19/24 02/25/24 02/24/24 History trazodone 50 mg tablet 50 mg PO BEDTIME 02/19/24 02/25/24 02/24/24 History albuterol sulfate 90 mcg/actuation 2 puff inhalation Q4-5H PRN 02/24/24 02/25/24 02/24/24 History aerosol inhaler Wheezing apixaban 5 mg tablet (Eliquis) 5 mg PO DAILY 02/24/24 02/25/24 02/21/24 History azithromycin 250 mg tablet 250 mg PO DIRECTED 02/24/24 02/25/24 02/22/24 History bumetanide 1 mg tablet 1 mg PO DAILY 02/24/24 02/25/24 02/24/24 History fluticasone fur. 100 mcg-umeclid 1 inh inhalation DAILY 02/24/24 02/25/24 02/24/24 History 62.5 mcg-vilant 25 mcg inhalat.powder (Trelegy Ellipta) Allergies Allergy/AdvReac Type Severity Reaction Status Date / Time No Known Allergies Allergy Verified 01/05/24 12:51 Current Medications Generic Name Dose Route Start Last Admin Trade Name Freq PRN Reason Stop Dose Admin Sodium Chloride 1,000 mls @ 30 mls/hr 02/25/24 10:45 02/25/24 11:12 Sodium Chloride 0.9% IV 02/26/24 10:44 30 mls/hr .Q24H ZORAIDA Administration PFSH Anesthesia Medical History Enrolled in chronic care management Osteopenia Osteoporosis Rotator cuff arthropathy of both shoulders Depression Hyperlipidemia Hypertension History of stroke x3 History of tremor Family History Mother Cancer Uterine Social History Smoking and tobacco/nicotine status: current every day tobacco/nicotine user Alcohol intake: former Substance/Drug Use: never Data Anesthesia Cardiac Studies: No Data to Display
--- NOTE | 2024-02-25 11:21 | PM.HP ---
Providers/Chief Complaint Primary Care Provider: RAHUL Mascorro Chief Complaint: R11.0 History of Present Illness Peri Jama is a 63 year old female Review of Systems General: Reports: 10 or more systems reviewed and unremarkable except in HPI and below Medications/Allergies Home Medications Medication Instructions Recorded Confirmed Last Taken Type albuterol sulfate 2.5 mg/3 mL 2.5 mg (3 mL) inhalation Q4H PRN 04/26/22 02/25/24 02/18/24 Rx (0.083 %) solution for nebulization shortness of breath or wheezing #180 mL cholecalciferol (vitamin D3) 25 25 mcg PO DAILY #90 caps 08/06/23 02/25/24 02/24/24 Rx mcg (1,000 unit) capsule polyethylene glycol 3350 17 17 g PO DAILY #850 grams 11/14/23 02/25/24 Unknown Rx gram/dose oral powder (Miralax) denosumab 60 mg/mL subcutaneous 60 mg SUBCUT .q6 months #1 mL 12/12/23 02/25/24 1 Month Ago Rx syringe (Prolia) ~01/19/24 diltiazem HCl 120 mg 120 mg PO BID 12/12/23 02/25/24 02/24/24 History capsule,extended release 12 hr pantoprazole 40 mg tablet,delayed 40 mg PO BID 6 weeks #84 tabs 12/15/23 02/25/24 02/24/24 Rx release (Protonix) linaclotide 72 mcg capsule 72 mcg PO DAILY 30 days #30 caps 01/05/24 02/25/24 02/24/24 Rx (Linzess) dicyclomine 20 mg tablet 20 mg PO DAILY 02/19/24 02/25/24 02/24/24 History lisinopril 40 mg tablet 40 mg PO DAILY 02/19/24 02/25/24 02/24/24 History rosuvastatin 10 mg tablet 10 mg PO DAILY 02/19/24 02/25/24 02/24/24 History sertraline 100 mg tablet 150 mg PO DAILY 02/19/24 02/25/24 02/24/24 History trazodone 50 mg tablet 50 mg PO BEDTIME 02/19/24 02/25/24 02/24/24 History albuterol sulfate 90 mcg/actuation 2 puff inhalation Q4-5H PRN 02/24/24 02/25/24 02/24/24 History aerosol inhaler Wheezing apixaban 5 mg tablet (Eliquis) 5 mg PO DAILY 02/24/24 02/25/24 02/21/24 History azithromycin 250 mg tablet 250 mg PO DIRECTED 02/24/24 02/25/24 02/22/24 History bumetanide 1 mg tablet 1 mg PO DAILY 02/24/24 02/25/24 02/24/24 History fluticasone fur. 100 mcg-umeclid 1 inh inhalation DAILY 02/24/24 02/25/24 02/24/24 History 62.5 mcg-vilant 25 mcg inhalat.powder (Trelegy Ellipta) Allergies Allergy/AdvReac Type Severity Reaction Status Date / Time No Known Allergies Allergy Verified 01/05/24 12:51 PFSH Acute PFSH: Medical History Enrolled in chronic care management Osteopenia Osteoporosis Rotator cuff arthropathy of both shoulders Depression Hyperlipidemia Hypertension History of stroke x3 History of tremor Family History Mother Cancer Uterine Social History Smoking and tobacco/nicotine status: current every day tobacco/nicotine user Alcohol intake: former Substance/Drug Use: never Vitals/I&O/Wt Last Vital Signs Temp 99.0 F 02/25/24 10:52 Pulse 112 H 02/25/24 10:52 Resp 18 02/25/24 10:52 BP 117/79 02/25/24 10:52 Pulse Ox 99 02/25/24 10:52 O2 Del Method Nasal Cannula 02/25/24 10:52 O2 Flow Rate 2 02/25/24 10:52 Weight last 48 hrs Weight 69 lb A&P Assessment and plan (1) GERD (gastroesophageal reflux disease): (2) Diarrhea: Plan EGD and colonoscopy Attestations Medical Necessity Statement*: Home Coding Level of Care Code Acute Code for Chg Fwd Diagnoses GERD (gastroesophageal reflux disease) K21.9 Diarrhea R19.7
[2024-02-25] MEDS: EPINEPHrine 1 mg/mL INJ XX (11:45)
[2024-02-25 12:05] VITALS: BP 121/73; PULSE 80; RESP 12; TEMP 36.5; O2SAT 100
[2024-02-25 12:20] VITALS: BP 105/65; PULSE 80; RESP 18; O2SAT 100
--- NOTE | 2024-02-25 12:40 | ANE.PACU2 ---
Inpatient post-anesthesia follow up: Airway intact: Yes Vital signs: Temperature 97.7 F Pulse Rate 80 Respiratory Rate 18 Blood Pressure 105/65 Pulse Oximetry 100 Oxygen Delivery Me thod Nasal Cannula Oxygen Flow Rate 2 Fraction of Inspir ed Oxygen Hydration adequate: Yes Nausea and vomiting: No Pain level: 1 Mental status: Baseline
== END 2024-02-25 12:40 | disposition home or self-care (01) ==
PROVIDERS: PCP Nurse Practitioner; Visit Provider Surgery
PROC: 0DJD8ZZ Inspection of Lower Intestinal Tract, Via Natural or Artificial Opening Endoscopic (ICD-10-PCS; CPT 45378; 2024-02-25 11:30)
DX: R19.7 Diarrhea, unspecified (principal); K21.00 Gastro-esophageal reflux disease with esophagitis, without bleeding; D12.0 Benign neoplasm of cecum; D12.4 Benign neoplasm of descending colon; M81.0 Age-related osteoporosis without current pathological fracture; E78.5 Hyperlipidemia, unspecified; I10 Essential (primary) hypertension; Z86.73 Personal history of transient ischemic attack (TIA), and cerebral infarction without residual deficits; K29.70 Gastritis, unspecified, without bleeding; F17.200 Nicotine dependence, unspecified, uncomplicated; J44.9 Chronic obstructive pulmonary disease, unspecified; Z99.81 Dependence on supplemental oxygen; I48.91 Unspecified atrial fibrillation
CPT/HCPCS: 43239; 45385; 88305; J0171; J2704; J7030

== ENCOUNTER → 2024-03-08 11:22 | Outpatient (BNVA) | payer MEDICARE, SELFPAY | PROVIDERS: PCP Nurse Practitioner; Visit Provider Surgery | DX: Z09 Encounter for follow-up examination after completed treatment for conditions other than malignant neoplasm (principal); K21.00 Gastro-esophageal reflux disease with esophagitis, without bleeding; K59.04 Chronic idiopathic constipation; D37.4 Neoplasm of uncertain behavior of colon | CPT/HCPCS: 99214 ==

== ENCOUNTER → 2024-03-26 10:23 | Outpatient (BNVA) | payer MEDICARE, SELFPAY | PROVIDERS: PCP Nurse Practitioner; Visit Provider Student in an Organized Health Care Education/Training Program | DX: M25.511 Pain in right shoulder (principal); G89.29 Other chronic pain; M25.512 Pain in left shoulder; M12.811 Other specific arthropathies, not elsewhere classified, right shoulder; M12.812 Other specific arthropathies, not elsewhere classified, left shoulder | CPT/HCPCS: 20610; 99213; J3301 ==

== ENCOUNTER → 2024-08-02 09:41 | Outpatient (BNVA) | payer MEDICARE, SELFPAY | PROVIDERS: PCP Nurse Practitioner; Visit Provider Surgery | DX: K59.04 Chronic idiopathic constipation (principal); K56.699 Other intestinal obstruction unspecified as to partial versus complete obstruction | CPT/HCPCS: 99214 ==

== ENCOUNTER → 2024-08-23 09:38 | Outpatient (BNVA) | payer MEDICARE, SELFPAY | PROVIDERS: PCP Nurse Practitioner; Visit Provider Surgery | DX: K56.699 Other intestinal obstruction unspecified as to partial versus complete obstruction (principal); K21.00 Gastro-esophageal reflux disease with esophagitis, without bleeding; R10.9 Unspecified abdominal pain; G89.29 Other chronic pain; R11.0 Nausea; Z79.01 Long term (current) use of anticoagulants; J44.9 Chronic obstructive pulmonary disease, unspecified | CPT/HCPCS: 99214 ==

== ENCOUNTER → 2024-08-25 09:32 | Outpatient (BNVA) | payer MEDICARE, SELFPAY | PROVIDERS: PCP Nurse Practitioner; Visit Provider Family Medicine | DX: Z01.818 Encounter for other preprocedural examination (principal) | CPT/HCPCS: 80053; 85025; 93005 ==